=== PATIENT | male | born 1960 | race Two or more races ===

== ENCOUNTER 2020-08-06 17:35 | Emergency (ER) | payer OTHER ==
[~2020-08-06] VITALS: Ht 170.2 cm; Wt 113.4 kg
[2020-08-06 18:32] LABS: BASOPHILS PERCENT AUTO 1 % (0-2); EOSINOPHILS ABSOLUTE AUTO 0.16 K/mm3 (0.00-0.68); EOSINOPHILS PERCENT AUTO 1 % (0-6); Hematocrit 53.9 % (37.0-53.0); Hemoglobin 18.2 g/dL (13.5-17.5); IMMATURE GRAN ABSOLUTE AUTO 0.04 K/mm3 (0.00-0.10); IMMATURE GRAN PERCENT AUTO 0 % (0-1); LYMPHOCYTES ABSOLUTE AUTO 1.92 K/mm3 (0.84-5.20); LYMPHOCYTES PERCENT AUTO 17 % (21-46); MONOCYTES ABSOLUTE AUTO 0.93 K/mm3 (0.16-1.47); MONOCYTES PERCENT AUTO 8 % (4-13); Mean Corpuscular HGB 29.9 pg (26.0-34.0); Mean Corpuscular HGB Conc 33.8 g/dL (31.5-36.5); Mean Corpuscular Volume 89 fL (80-100); Mean Platelet Volume 9.8 fL (9.1-12.4); NEUTROPHILS ABSOLUTE AUTO 8.28 K/mm3 (1.96-9.15); NEUTROPHILS PERCENT AUTO 73 % (41-73); Platelet Count 285 K/mm3 (150-400); RDW Coefficient Variation 12.6 % (11.7-14.2); RDW Standard Deviation 40.8 fL (35.1-46.3); Red Blood Cell Count 6.08 M/mm3 (4.30-5.90); White Blood Cell Count 11.43 K/mm3 (4.00-11.30)
[2020-08-06 18:55] LABS: Alanine Aminotransfer (ALT/SGP 43 U/L (12-78); Albumin/Globulin Ratio 0.9 (0.8-1.8); Alk Phos 82 U/L (50-136); Anion Gap 9 mmol/L (6-16); Aspartate Aminotrans (AST/SGOT 38 U/L (12-37); Bilirubin, Total 0.7 mg/dL (0.1-1.0); Blood Urea Nitrogen 21 mg/dL (8-24); CO2, Blood 23 mmol/L (21-32); Calcium, Blood 10.1 mg/dL (8.5-10.1); Chloride, Blood 103 mmol/L (98-108); Creatinine, Blood 0.88 mg/dL (0.60-1.20); Globulin, Blood 4.6 g/dL (2.2-4.0); Glomerular Filtration Rate >60 (60-); Glucose, Blood 92 mg/dL (70-99); Potassium, Blood 4.4 mmol/L (3.5-5.5); Sodium, Blood 135 mmol/L (136-145); Total Protein, Blood 8.6 g/dL (6.4-8.2); Troponin I <0.015 ng/mL (0.000-0.040)
[2020-08-06] MEDS ORDERED: GABA300 PO (19:22)
[2020-08-06] MEDS ORDERED: ACYC800 PO (19:45)
[2020-08-06] MEDS ORDERED: OMEP20ER PO (19:45)
[2020-08-06] MEDS ORDERED: NAPR220 PO (19:46)
[2020-08-06] MEDS ORDERED: Norco 10-325 T1 EACH PO (19:46)
[2020-08-06] MEDS ORDERED: MULTIPLE VITAM1 EACH PO (19:47)
[2020-08-06] MEDS ORDERED: POTASSIUM CITRA5 ME1 PO (19:49)
[2020-08-06] MEDS ORDERED: VITAMIN D5000 UNIT PO (19:50)
[2020-08-06] MEDS ORDERED: Alph-E-Mixed400 UNIT PO (19:52)
== END 2020-08-06 20:02 | disposition home or self-care (01) ==
LOC: ER 17:35
PROVIDERS: Physician Assistant
DX: M79.622 Pain in left upper arm (principal); M25.512 Pain in left shoulder; Z79.899 Other long term (current) drug therapy; X50.9XXA Other and unspecified overexertion or strenuous movements or postures, initial encounter
CPT/HCPCS: 36415; 71046; 80053; 84484; 85025; 93005; 93010; 99284-25

== ENCOUNTER 2021-08-05 10:56 | Inpatient (IN) | payer OTHER ==
[~2021-08-05] VITALS: Ht 162.6 cm; Wt 108.9 kg
[~2021-08-05 10:56] MED LIST: ACYC800 PO; Alph-E-Mixed400 UNIT PO; GABA300 PO; MULTIPLE VITAM1 EACH PO; NAPR220 PO; Norco 10-325 T1 EACH PO; OMEP20ER PO; POTASSIUM CITRA5 ME1 PO; VITAMIN D5000 UNIT PO
[2021-08-05 12:16] LABS: BASOPHILS ABSOLUTE AUTO 0.05 K/mm3 (0.00-0.23); BASOPHILS PERCENT AUTO 1 % (0-2); EOSINOPHILS ABSOLUTE AUTO 0.01 K/mm3 (0.00-0.68); EOSINOPHILS PERCENT AUTO 0 % (0-6); Hematocrit 49.6 % (37.0-53.0); Hemoglobin 16.5 g/dL (13.5-17.5); IMMATURE GRAN ABSOLUTE AUTO 0.04 K/mm3 (0.00-0.10); IMMATURE GRAN PERCENT AUTO 0 % (0-1); LYMPHOCYTES ABSOLUTE AUTO 0.62 K/mm3 (0.84-5.20); LYMPHOCYTES PERCENT AUTO 6 % (21-46); MONOCYTES ABSOLUTE AUTO 0.67 K/mm3 (0.16-1.47); MONOCYTES PERCENT AUTO 6 % (4-13); Mean Corpuscular HGB 30.1 pg (26.0-34.0); Mean Corpuscular HGB Conc 33.3 g/dL (31.5-36.5); Mean Corpuscular Volume 90 fL (80-100); Mean Platelet Volume 9.6 fL (9.1-12.4); NEUTROPHILS ABSOLUTE AUTO 9.32 K/mm3 (1.96-9.15); NEUTROPHILS PERCENT AUTO 87 % (41-73); Platelet Count 162 K/mm3 (150-400); RDW Standard Deviation 43.6 fL (35.1-46.3); Red Blood Cell Count 5.49 M/mm3 (4.30-5.90); White Blood Cell Count 10.71 K/mm3 (4.00-11.30)
[2021-08-05 12:42] LABS: Alanine Aminotransfer (ALT/SGP 128 U/L (12-78); Albumin/Globulin Ratio 0.8 (0.8-1.8); Alk Phos 101 U/L (50-136); Anion Gap 6 mmol/L (6-16); Aspartate Aminotrans (AST/SGOT 79 U/L (12-37); Bilirubin, Total 2.7 mg/dL (0.1-1.0); Blood Urea Nitrogen 12 mg/dL (8-24); Bun/Creatinine Ratio 11.8 (12.0-20.0); CO2, Blood 28 mmol/L (21-32); Calcium, Blood 9.1 mg/dL (8.5-10.1); Chloride, Blood 101 mmol/L (98-108); Creatinine, Blood 1.02 mg/dL (0.60-1.20); Globulin, Blood 3.9 g/dL (2.2-4.0); Glomerular Filtration Rate >60 (60-); Glucose, Blood 108 mg/dL (70-99); Potassium, Blood 4.3 mmol/L (3.5-5.5); Sodium, Blood 135 mmol/L (136-145); Total Protein, Blood 6.9 g/dL (6.4-8.2)
[2021-08-05 15:48] LABS: Source, Urine Voided
[2021-08-05 16:03] LABS: Appearance, Urine Clear (Clear); Bilirubin, Urine Neg (Neg); Blood, Urine 4+ (Neg); Color, Urine Yellow (P-Yellow); Glucose Qualitative, Urine Neg (Neg); Ketones, Urine 2+ (Neg); Leukocyte Esterase, Urine Neg (Neg); Nitrite, Urine Neg (Neg); Protein, Urine 2+ (Neg); Specific Gravity, Urine 1.015 (1.003-1.022); Urobilinogen, Urine 2+ (Normal); pH, Urine 6.5 (5.0-8.0)
[2021-08-05 16:26] LABS: Bacteria Rare /hpf; Mucus Light (0-Heavy); Squamous Epithelial Cells Not Seen /hpf (Few)
[2021-08-05 16:36] LABS: Influenza A, PCR NEGATIVE (NEGATIVE); Influenza B, PCR NEGATIVE (NEGATIVE); Resp Syncytial Virus, PCR NEGATIVE (NEGATIVE); SARS-Cov-2 (COVID-19) PCR, MMC NEGATIVE (NEGATIVE)
[2021-08-06 04:05] LABS: Hematocrit 44.7 % (37.0-53.0); Hemoglobin 15.2 g/dL (13.5-17.5); Mean Corpuscular HGB 30.2 pg (26.0-34.0); Mean Corpuscular Volume 89 fL (80-100); Mean Platelet Volume 9.9 fL (9.1-12.4); Platelet Count 120 K/mm3 (150-400); RDW Coefficient Variation 13.2 % (11.7-14.2); RDW Standard Deviation 43.4 fL (35.1-46.3); Red Blood Cell Count 5.04 M/mm3 (4.30-5.90); White Blood Cell Count 13.78 K/mm3 (4.00-11.30)
[2021-08-06 05:08] LABS: Alanine Aminotransfer (ALT/SGP 89 U/L (12-78); Albumin, Blood 2.5 g/dL (3.4-5.0); Albumin/Globulin Ratio 0.7 (0.8-1.8); Alk Phos 88 U/L (50-136); Anion Gap 8 mmol/L (6-16); Aspartate Aminotrans (AST/SGOT 54 U/L (12-37); Bilirubin, Total 1.6 mg/dL (0.1-1.0); Blood Urea Nitrogen 14 mg/dL (8-24); Bun/Creatinine Ratio 18.7 (12.0-20.0); CO2, Blood 23 mmol/L (21-32); Calcium, Blood 8.3 mg/dL (8.5-10.1); Chloride, Blood 105 mmol/L (98-108); Creatinine, Blood 0.75 mg/dL (0.60-1.20); Globulin, Blood 3.5 g/dL (2.2-4.0); Glomerular Filtration Rate >60 (60-); Glucose, Blood 96 mg/dL (70-99); Potassium, Blood 3.8 mmol/L (3.5-5.5); Sodium, Blood 136 mmol/L (136-145)
--- NOTE | 2021-08-06 07:17 | NUR ---
PT IS A/OX4, FEBRILE WITHA HIGH OF 102.1, TACHYCARDIC 130S. MANAGED FEVER WITH IBUPROHEN, TYLENOL, AND ICE. POSTIVIE BLOOS CULTURES X2, REPORTED TO DAY TEAM. PT HAD ONE LOOSE STOOL THIS SHIFT. REPORTING RIGH TSIDED ABDOMINAL PAIN RELIEVED BY ANTIINFLAMMITORIES.
[2021-08-06 14:35] LABS: Adenovirus F 40/41 Not Detected (NOT DETECT); Astrovirus Not Detected (NOT DETECT); Campylobacter Sp Not Detected (NOT DETECT); Cryptosporidium Not Detected (NOT DETECT); Cyclospora Cayetanensis Not Detected (NOT DETECT); E. Coli O157 Not Detected (NOT DETECT); Entamoeba Histolytica Not Detected (NOT DETECT); Enteroaggregative E. coli-EAEC Not Detected (NOT DETECT); Enteropathogenic E. coli-EPEC Not Detected (NOT DETECT); Enterotoxigenic E. coli-ETEC Not Detected (NOT DETECT); Giardia Lamblia Not Detected (NOT DETECT); Norovirus GI/GII Not Detected (NOT DETECT); Plesiomonas Shigelloides Not Detected (NOT DETECT); Rotavirus A Not Detected (NOT DETECT); Salmonella Sp Not Detected (NOT DETECT); Sapovirus Not Detected (NOT DETECT); Shiga Toxin-prod E. coli-STEC Not Detected (NOT DETECT); Shigella/Enteroin E. coli-EIEC Not Detected (NOT DETECT); Vibrio Cholerae Not Detected (NOT DETECT); Vibrio Sp Not Detected (NOT DETECT); Yersinia Enterocolitica Not Detected (NOT DETECT)
--- NOTE | 2021-08-06 17:40 | NUR ---
SHIFT SUMMARY PT A&O X4. INDEPENDENT IN RM. VSS. SPO2 > 92% ON RA. MONITOR SHOWING ST, HR 100-110. PT W/ TMAX OF 100.4 TODAY, MEDICATED W/ PRN IBUPROFEN PER EMAR X1 W/ TEMP DECREASE TO 98.7. PT REPORING LINGERING DULL ABD PAIN. PT W/ MULTIPLE LOOSE BROWN STOOLS, STOOL SAMPLE SENT, SEE RESULTS. PT W/ NO N/V. LR GTT INFUSING PER ORDERS. WILL CONTINUE TO MONITOR & PROVIDE CARE UNTIL REPORT OFF TO PRECIPITATE WASHER RN.
--- NOTE | 2021-08-07 06:39 | NUR ---
PT REPORTS FEELING MUCH BETTER THIS SHIFT. HEADACHES ARE PRESISTING. ADMINISTERING ADVIL WITH SOME IMPROVEMENT. AFEBRILE THROUGHOUT SHIFT. BP CONTINUES TO BE SLIGHTLY ELEVATED. PATIENT IS STRONGER, AMBULATING IN ROOM AND PROVIDING SELF CARE.
--- NOTE | 2021-08-07 17:50 | NUR ---
TRANSFER TO SURGICAL PT MEDICAL NO TELE STATUS. A&O X4. INDEPENDENT IN RM. PT BP ELEVATED, MD MARTINEZ W/ NEW ORDER FOR PO NORVASC GIVEN THIS EVENING. OTHERWISE VSS. SPO2 > 92% ON RA. PT W/ OCCASSIONAL HARSH, DRY, NONPRODUCTIVE COUGH. PRN COUGH MEDICATION GIVEN X1 THIS SHIFT PER PT REQUEST. NO EVENTS OVER DAY. PT TAKEN TO RM 221 BY WHEELCHAIR BY PCT W/ BELONGINGS @ APPROX [id number].
--- NOTE | 2021-08-08 00:44 | NUR ---
PT IS IN BED AT THIS TIME WHERE HE REMAINS MUCH OF THE NIGHT IN STABLE CONDITION AND IS RESTING COMFORTABLY. C/O HEADACHE AND MEDICATED WITH MOTRIN INDICATED. HE THEN VERBALIZED PAIN RELIEF FROM THE MOTRIN, NO OTHER COMPLAINTS. HE IS ASSISTED WITH HIS CARE AND ADLS, MEDICATED WITH SCHEDULED MEDS INDICATED. HIS CALL ROSAS PLACED NEAR HIM AND ENCOURAGE TO CALL FOR HELP WHEN ASSISTANCE IS NEEDED HE IS MONITORED.
[2021-08-08 04:04] LABS: Hematocrit 45.2 % (37.0-53.0); Hemoglobin 15.4 g/dL (13.5-17.5); Mean Corpuscular HGB Conc 34.1 g/dL (31.5-36.5); Mean Corpuscular Volume 88 fL (80-100); Mean Platelet Volume 9.7 fL (9.1-12.4); Platelet Count 154 K/mm3 (150-400); RDW Coefficient Variation 13.2 % (11.7-14.2); RDW Standard Deviation 42.8 fL (35.1-46.3); Red Blood Cell Count 5.14 M/mm3 (4.30-5.90)
[2021-08-08 04:43] LABS: Anion Gap 8 mmol/L (6-16); Blood Urea Nitrogen 12 mg/dL (8-24); Bun/Creatinine Ratio 17.6 (12.0-20.0); CO2, Blood 25 mmol/L (21-32); Calcium, Blood 8.6 mg/dL (8.5-10.1); Chloride, Blood 105 mmol/L (98-108); Creatinine, Blood 0.68 mg/dL (0.60-1.20); Glomerular Filtration Rate >60 (60-); Glucose, Blood 109 mg/dL (70-99); Potassium, Blood 3.5 mmol/L (3.5-5.5); Sodium, Blood 138 mmol/L (136-145)
--- NOTE | 2021-08-08 17:50 | NUR ---
SHIFT SUMMARY: PATIENT NOTED WITH NON PRODUCTIVE COUGH, ON ANTIBIOTIC TREATMENT, NEW IV ACCESS INSERTED THIS EVENING THE OLD IV ACCESS WAS TENDER AROUND THE AREA, AMBULATES INDEPENDENTLY TO THE BATHROOM, HAD A SHOWER THIS MORNING, ATE ALL HIS MEALS SERVED, AOX4, USED THE BATHROOM TO URINATE 3 X THROUGHOUT THE DAY, NO COMPLAINTS OF PAIN, REFUSED PAIN MEDICINE. SLIGHT NONPITTING EDEMA NOTED TO BLE & RIGHT HAND.
--- NOTE | 2021-08-09 06:05 | NUR ---
Pt is up on her chair in his room at this time, was in bed much of the night before he got up. He is alert awake and oriented, has reported cough and headache and was medicated accordingly, no other complaints. He is assisted with care and ADLs, assisted with bathroom and toileting needs, medicated as indicated. His call light was given to [facility] and was encouraged to call for help when assistance is needed as he is monitored.
[2021-08-09] MEDS ORDERED: AMLO10 PO (11:21)
[2021-08-09] MEDS ORDERED: ROBITUSSIN DM PO (11:23)
[2021-08-09] MEDS ORDERED: VISBIOME 112.51 EACH PO (11:23)
[2021-08-09] MEDS ORDERED: LEVFLO500 PO (11:23)
--- NOTE | 2021-08-09 16:53 | NUR ---
DISCHARGED PT. PER MD ORDER, DISCHARGE INSTRUCTION GIVEN,PT. VERBALIZED UNDERSTANDING, IV ACCESS REMOVED, PT. TOLERATED WELL, PT. AMBULATING INDEPENDENTLY, REFUSED TO USE WHEELCHAIR, ACCOMPANIED BY HIS FATHER.AOX3,INSTRUCTED TO FOLLOW UP WITH MD WITHIN 2 WEEKS AFTER D/C, PT. VERBALIZED UNDERSTANDING.
== END 2021-08-09 17:04 | disposition home or self-care (01) | DRG 872 ==
LOC: ER 10:56 → PCU 16:24 → ERHOLD 16:24 → PCU 22:00 → SURS 08-07 17:53
PROVIDERS: Emergency Medicine; Physician Assistant; ADMIT Internal Medicine
DX: A41.59 Other Gram-negative sepsis (principal); Z20.822 Contact with and (suspected) exposure to COVID-19; E78.5 Hyperlipidemia, unspecified; I10 Essential (primary) hypertension; G47.33 Obstructive sleep apnea (adult) (pediatric); M54.12 Radiculopathy, cervical region; B96.1 Klebsiella pneumoniae [K. pneumoniae] as the cause of diseases classified elsewhere; Z79.899 Other long term (current) drug therapy
CPT/HCPCS: 0097U; 0241U; 36415; 71045; 76705; 80048; 80053; 81001; 83605; 85025; 85027; 87040; 87077; 87186; 94660; 94762; 96365; 96375; 99285-25; A9270; J0692; J0696; J1650; J2543; J7030; J7050; J7120

== ENCOUNTER 2022-05-18 13:51 | Emergency (ER) | payer OTHER ==
[~2022-05-18] VITALS: Ht 162.6 cm; Wt 101.2 kg
[~2022-05-18 13:51] MED LIST changes: +AMLO10 PO; +LEVFLO500 PO; +ROBITUSSIN DM PO; +ROXICODONE5 MG PO; +VISBIOME 112.51 EACH PO
[2022-05-18 17:13] LABS: Source, Urine Clean Catch
[2022-05-18 18:08] LABS: Appearance, Urine Clear (Clear); Bilirubin, Urine Neg (Neg); Blood, Urine 5+ (Neg); Color, Urine Yellow (P-Yellow); Glucose Qualitative, Urine Neg (Neg); Ketones, Urine 3+ (Neg); Leukocyte Esterase, Urine Neg (Neg); Nitrite, Urine Neg (Neg); Protein, Urine Neg (Neg); Urobilinogen, Urine 2+ (Normal)
[2022-05-18 18:35] LABS: Bacteria Few /hpf; Squamous Epithelial Cells Rare /hpf (Few); White Blood Cells, Urine 0-2 /hpf (0-5)
[2022-05-18] MEDS ORDERED: ONDA4ODT MM (19:31)
== END 2022-05-18 19:45 | disposition home or self-care (01) ==
LOC: ER 13:51
PROVIDERS: Emergency Medicine
DX: K52.9 Noninfective gastroenteritis and colitis, unspecified (principal); E78.5 Hyperlipidemia, unspecified; G47.33 Obstructive sleep apnea (adult) (pediatric); I10 Essential (primary) hypertension; Z79.899 Other long term (current) drug therapy
CPT/HCPCS: 71046; 74177; 81001; J1885; J2270; J2405; Q9967

== ENCOUNTER 2024-08-26 10:22 | Emergency (ER) | payer OTHER ==
[~2024-08-26] VITALS: Ht 162.6 cm; Wt 102.5 kg
[~2024-08-26 10:22] MED LIST changes: +ONDA4ODT MM
[2024-08-26 10:40] VITALS: BP 122/83
[2024-08-26] MEDS ORDERED: Dexamethasone Sod Phos 10 MG/ML 1ML VIAL PO ONE (15:00)
[2024-08-26] MEDS ORDERED: BENZ100A PO (15:01)
== END 2024-08-26 15:12 | disposition home or self-care (01) ==
LOC: ER 10:22
DX: R05.9 Cough, unspecified (principal)
CPT/HCPCS: 71046; 99283-25; J1100

== ENCOUNTER 2025-06-05 05:48 | Day surgery (SDC) | payer OTHER ==
[2025-06-05] VITALS (21 sets, daily range): BP systolic 103–1113; BP diastolic 70–95
[~2025-06-05] VITALS: Ht 162.6 cm; Wt 97.2 kg
[~2025-06-05 05:48] MED LIST changes: +BENZ100A PO; -OMEP20ER PO; +Omeprazole20 M1 PO; +PSEUDOEPHEDRINE30 M1 PO; +THERA-D2000 UNIT PO; +ZOCOR20 MG PO
--- NOTE | 2025-06-05 06:52 | NUR ---
History, Chart, Medications and Allergies reviewed before start of procedure. Patient confirms NPO status and agrees with scheduled surgery. Pre-Op teaching done. Pt verbalizes understanding. Patient reports completing Chlorhexadine shower X2 prior to admission to hospital. Lungs clear T/O to Auscultation.
[2025-06-05] MEDS ORDERED: Bupivacaine 0.5% W/EPI 1:200000 SDV 30 ML Vial ONE (07:08)
[2025-06-05] MEDS ORDERED: FentaNYL Citrate 50 MCG/ML 2 ML Injection ONE ×2 (07:26→09:47)
[2025-06-05] MEDS ORDERED: Midazolam HCl 1MG / ML 2ML Vial ONE (07:26)
[2025-06-05] MEDS ORDERED: Rocuronium Bromide 10 MG/ML 5ML Injection IV ONE ×2 (07:30→09:04)
[2025-06-05] MEDS ORDERED: Dexamethasone Sod Phos 10 MG/ML 1ML VIAL ONE (07:52)
[2025-06-05] MEDS ORDERED: Phenylephrine HCl 100 MCG/ML-NS 10MLSYR (1MG/10ML) ONE (07:52)
[2025-06-05] MEDS ORDERED: Ondansetron HCl 2 MG / ML 2ML Vial ONE (07:52)
[2025-06-05] MEDS ORDERED: Sugammadex Sodium 200 MG/2ML SDV (100 MG/ML) ONE (09:04)
[2025-06-05] MEDS ORDERED: HYDROmorphone HCl/Pf 1MG SYR IV PRN (09:10)
[2025-06-05] MEDS ORDERED: FentaNYL Citrate 50 MCG/ML 2 ML Injection IV PRN ×2 (09:10)
[2025-06-05] MEDS ORDERED: Ondansetron HCl 2 MG / ML 2ML Vial IV PRN (09:10)
[2025-06-05] MEDS ORDERED: HYDROmorphone HCl/Pf 1MG SYR ONE ×2 (10:36→10:58)
[2025-06-05] MEDS ORDERED: OxyCODONE 5 mg/Acetamin 325 mg TABLET PO PRN (11:55)
--- NOTE | 2025-06-05 12:53 | NUR ---
DISCHARGE NOTE PT A&OX4, BREATHING RA, VSS, TOLERATING PO INTAKE, NO COMPLAINTS OF NAUSEA AND PAIN LEVEL TOLERABLE UPON DISCHARGE. ABDOMINAL BINDER IN PLACE. Patient up to Ambulate independently. Gait steady. Discharge instructions reviewed with patient. Patient verbalizes understanding. Copy given to patient to take home. Dressing to procedure site clean, dry, intact with no visible drainage, swelling, erythema or bruising noted. Discharged via wheelchair to [facility].
== END 2025-06-05 12:45 | disposition home or self-care (01) ==
LOC: ORSCMMR 05:48 → ORD 07:30 → ORSCMMR 12:45
PROVIDERS: Surgery
PROC: 0WUF4JZ Supplement Abdominal Wall with Synthetic Substitute, Percutaneous Endoscopic Approach (ICD-10-PCS; principal; 2025-06-05 07:30)
PROC: 8E0W4CZ Robotic Assisted Procedure of Trunk Region, Percutaneous Endoscopic Approach (ICD-10-PCS; principal; 2025-06-05 07:30)
PROC: 0WQF4ZZ Repair Abdominal Wall, Percutaneous Endoscopic Approach (ICD-10-PCS; principal; 2025-06-05 07:30)
DX: K43.6 Other and unspecified ventral hernia with obstruction, without gangrene (principal); K43.2 Incisional hernia without obstruction or gangrene; M62.08 Separation of muscle (nontraumatic), other site; E78.5 Hyperlipidemia, unspecified; K21.9 Gastro-esophageal reflux disease without esophagitis; I10 Essential (primary) hypertension; G47.33 Obstructive sleep apnea (adult) (pediatric); F32.A Depression, unspecified; Z79.899 Other long term (current) drug therapy; Z87.891 Personal history of nicotine dependence; E66.9 Obesity, unspecified; Z68.36 Body mass index [BMI] 36.0-36.9, adult
CPT/HCPCS: A9270; C1781; J1100; J1171; J2250; J2371; J2405; J2704; J3010; J7120